=== PATIENT | female | born 1990 | race African-American/Black ===

== ENCOUNTER → 2017-07-21 | Day surgery (SDC) | payer OTHER ==
[~2017-07-21] MED LIST: BUDE10.2 IH; BUPIVACAINE-EPI 0.5%-1:200000 50 ML VIAL. ONE; DEXAMETHASONE SOD PHOS 20 MG/5 ML VIAL. ONE; HYDROmorphone 2 MG/ML VIAL IV PRN; IV RINGERS,LACTATED 1000ML 1,000 ML IV SCH; LIDOCAINE 1% PF 2 ML VIAL. ID PRN; LIDOCAINE 2% PF Vial for OR 5 ML VIAL. ONE; MIDAZOLAM HCL/PF 2 MG/2 ML VIAL. ONE; MONT10TA9 PO; MORPHINE SULFATE 4 MG/ML DISP.SYRIN. IV PRN; ONDANSETRON PF 4 MG/2 ML VIAL. IV PRN; ONDANSETRON PF 4 MG/2 ML VIAL. ONE; PROAIR HFA8.5 GM INH; PROCHLORPERAZINE 10 MG/2 ML VIAL. IV PRN; PROPOFOL 20 ML IV ONE; SEVOFLURANE 31 TO 60 MINUTES. IH ONE; fentaNYL PF VIAL 100 MCG/2 ML VIAL IV PRN; fentaNYL PF VIAL 100 MCG/2 ML VIAL ONE
[2017-07-21 09:32] LABS: NEG OBC UR NEG; POS OBC UR POS
--- NOTE | 2017-07-21 10:00 | PDOC1 ---
History and Physical Date of Admission Date of Admission DATE: 07/21/17 TIME: 09:55 Identification/Chief Complaint Chief Complaint Bartholin Cyst Problems: Source Source: Patient History of Present Illness History of Present Illness L Bartholin cyst persistent Past Medical History Cardiovascular: No pertinent hx Pulmonary: No pertinent hx Social History Smoke: No ALCOHOL: none Current Medications Current Medications Current Medications Ringer's Solution 1,000 ml @ 100 mls/hr Q10H IV Last administered on t 09:35; Start 07/21/17 at 09:45 Active Scripts Active Reported Symbicort 160-4.5 Mcg Inhaler (Budesonide/Formoterol Fumarate) 10.2 Gm Hfa.aer.ad 2 Puff IH BID Montelukast Sodium Tablet (Montelukast Sodium) 10 Mg Tablet 10 Mg PO HS Proair Hfa Inhaler (Albuterol Sulfate) 8.5 Gm Hfa.aer.ad 1 Puff INH PRN Q6HRS PRN Allergies Allergies: Coded Allergies: No Known Drug Allergies (Unverified , 07/21/17) ROS Genitourinary: YES Other (Bartholin cyst) Physical Exam General: Alert, Oriented X3, Cooperative, No acute distress HEENT: PERRLA Lungs: Clear to auscultation, Normal air movement Breasts: Normal, Rt breast nml w/o mass, Lt breast nml w/o mass, Nipples normal Abdomen: Normal bowel sounds, Soft, No tenderness, No hepatosplenomegaly, No masses Rectal Exam: not examined PELVIC: Nml ext vagina, Nml ext cervic, Nml ext uterus, Nml ext adnexa, Masses Extremities: No clubbing, No cyanosis, No edema, Normal pulses, No tenderness/ swelling Skin: No rashes, No breakdown, No significant lesion Neuro: Normal gait, Normal speech, Strength at 5/5 X4 ext, Normal tone, Sensation intact, Cranial nerves 3-12 NL, Reflexes 2+ Psych/Mental Status: Mental status NL, Mood NL Vitals Vitals Vital Signs Date Time Temp Pulse Resp B/P (MAP) Pulse Ox O2 Delivery O2 Flow Rate FiO2 07/21/17 09:26 97.4 63 18 137/78 98 Room Air 97.4 Labs Labs Laboratory Tests Test 07/21/17 09:20 Urine Test Negative (NEG) Laboratory Tests Test 07/21/17 09:20 Urine Test Negative (NEG) VTE Prophylaxis Ordered VTE Prophylaxis Devices: Yes VTE Pharmacological Prophylaxi: No Assessment/Plan Assessment/Plan Left Bartholin cyst Marsupialization DARBY BHATTI MD Jul 21, 2017 10:00
--- NOTE | 2017-07-21 11:57 | OP ---
DATE OF SURGERY: 07/21/2017 PREOPERATIVE DIAGNOSIS: Left Bartholin cyst. POSTOPERATIVE DIAGNOSIS: Left Bartholin cyst. PROCEDURE: Marsupialization of gland. SURGEON: Roosevelt Stevenson M.D. SEWING SUPERVISOR: None. ANESTHESIA: General. ESTIMATED BLOOD LOSS: 10 mL. FLUIDS: Crystalloid. SPECIMENS: 1. Part of cyst wall. 2. Cultures anaerobic and aerobic. COMPLICATIONS: None. CONDITION: Stable. DESCRIPTION OF PROCEDURE: Risks, benefits, indications, alternatives and expectations were discussed in detail with the patient. The patient brought to OR theater, placed in the dorsolithotomy position in [facility]. After adequate general anesthesia, the patient prepped and draped in usual sterile manner. The hymnal ring area was grasped with Awa x 2. The vaginal aspect of the cyst wall was identified. Using a scalpel the vaginal mucosa was incised until the cyst wall was identified. The cyst wall was grasped with a hemostat. A small portion was taken out to relieve the fluid from the cystic structure. Clear gel like fluid was expressed consistent with normal Bartholin gland mucous/secretions. This was allowed to freely flow out entirely out the cyst. The cyst was explored with a hemostat. No further pockets were identified. A simple marsupialization was performed using 3-0 Vicryl to attach the vaginal mucosa to the posterior cyst wall. Good hemostasis was assured. The area was infiltrated with 0.5% Marcaine with epinephrine for additional pain control and procedure was terminated. Sponge, needle and instrument counts were correct x 2 per nursing staff. The patient went to postanesthesia recovery in stable condition. ROOSEVELT STEVENSON MD DR: JAILENE/rowan JOB#: [id number] / [id number]
[2017-07-21] MEDS: fentaNYL PF VIAL 100 MCG/2 ML VIAL IV PRN ×2 (12:02→12:24)
[2017-07-21 13:15] VITALS: BP 111/61
--- NOTE | 2017-07-23 11:28 | PATHOLOGY ---
PATHOLOGY REPORT * * * * * * * * FINAL DIAGNOSIS: Left Bartholin cyst marsupialization: - Segment of benign fibromuscular tissue. See comment. (JPM:pit; 07/23/2017) COMMENT: Sections of the left Bartholin cyst marsupialization cyst wall reveal a segment of benign fibrous tissue and smooth muscle. There is no distinct epithelial cyst lining identified. No Bartholin type glands are identified with the fibromuscular tissue. There is no significant inflammatory cell infiltrate. There is no evidence of malignancy. (JPM:pit; 07/23/2017) REPORT ELECTRONICALLY SIGNED BY: Onur Lincoln M.D. DATE/TIME: 07/23/2017 11:27 * * * * * * * * GROSS PATHOLOGY: The specimen is received in formalin labeled "Mayela Arechiga, cyst wall". Received is a segment of pale chen fibrous soft tissue measuring 0.7 x 0.7 x 0.4 cm in greatest dimensions. The specimen is submitted entirely in cassette A1. (CAA; 07/22/2017) INITIAL CPT CODE(S): A; 68715 Professional services performed [place] [email or web address] [address] Technical services performed by [facility] at [address] [place] [address] [address] [address]. SPECIMEN(S) RECEIVED: A.Cyst wall CLINICAL HISTORY: Bartholin cyst PATIENT: MAYELA ARECHIGA /AGE: 1008/16/1990 (Age: 26) PATIENT #: [id number] ALT CASE #: SPECIMEN COLLECTION DATE: 07/21/2017 SPECIMEN RECEIVED DATE: 07/21/2017 [facility] - [address] [place] [address] - PHONE: [phone] * * * END OF REPORT * * *
== END | disposition home or self-care (01) ==
LOC: SURG 08:46
PROVIDERS: ATTEND Specialist
DX: N75.0 Cyst of Bartholin's gland (principal); J45.909 Unspecified asthma, uncomplicated; E66.9 Obesity, unspecified; Z72.89 Other problems related to lifestyle
CPT/HCPCS: 56440; 81025; 87071; 87075; 87205; C1769; J1100; J2405; J2704; J3010; 88304; J2250; J2001